=== PATIENT | male | born 1950 | race Caucasian/White ===

== ENCOUNTER → 2016-08-15 | Day surgery (SDC) | payer BC ==
[~2016-08-15] MED LIST: ALEVE220 M1 PO; ALLEGRA; ALLEGRA ALLERG180 MG PO; ALLEGRA180 MG PO; AMOX CLAV; ASENDIN25 MG; ASPIRIN EC81 M1 PO; ASPIRIN81 M2 PO; AVALIDE 300-251 TAB; BENTYL10 MG PO; CIPRO PO; COLESTID PO; DITROPAN X10 MG/BOTT PO; ESCITALOPRAM OX10 MG PO; GLUCOPHAGE XR500 MG; HYDROCODON-ACE1 EAC5 PO; HYZAAR 100-25 T1 TAB PO; HYZAAR 50-12.51 TA1 PO; JANUVIA PO; LOMOTIL TABLET1 TAB PO; LOSARTAN-HCTZ1 EAC1 PO; METFORMIN HCL500 M1 PO; MOBIC15 MG PO; MOTRIN600 M1 PO; OXYBUTYNIN10 MG/BOTT PO; ZOFRANODT PO
--- NOTE | ~2016-08-15 | OR ---
Unit #: [id number] #: [id number] Patient: KADI ROMERO [id number] [address] [place], [place] [address] [id number] O MR#: [id number] NAME: KADI ROMERO. ROOM: Date of Procedure: 08/15/2016 Admission Date: 08/15/2016 Surgeon: Chivo Bynum M.D. : 1950 Attending Physician: Chivo Bynum M.D. Primary Care Physician: Cara Castro M.D. SURGERY CENTER OPERATIVE NOTE PROCEDURE PERFORMED Lumbar epidural steroid injection under x-ray guided needle placement. PREOPERATIVE DIAGNOSES 1. Acute lumbar radiculitis. 2. Spinal stenosis, lumbosacral spine. 3. Degenerative joint disease, lumbosacral spine. 4. Degenerative disk disease, lumbosacral spine. INDICATIONS FOR PROCEDURE The patient presents today with a longstanding history of chronic lumbar radicular pain secondary to his underlying degenerative processes at his most recent epidural steroid injection occurring approximately 3 to 4 months ago. The patient developed pain consistent with lumbar facet arthralgia in the interim between and is return today. He presents today having exacerbation, which is similar in the past to his previous exacerbations as well as the underlying/overlying lumbar facet arthralgia. After discussing risks and benefits of proceeding today with an L4-L5 epidural steroid injections as well as return to this clinic on 11/28/2016, the patient agreed this would be the appropriate course of action. We also discussed referral to [facility] for a potential facet joint injections as well as radiofrequency ablation, which he agreed. DESCRIPTION OF PROCEDURE Following these discussions, the patient was taken to the operating room, where he was prepped and draped in a sterile manner. Standard monitors were applied. He refused all forms of sedation and lumbar epidural space accessed at the L4-L5 level using loss of resistance technique and x-ray guidance. Needle placement was confirmed with injection of 2 mL of Omnipaque. There was good superior and inferior flow at this injected level. Following successful needle placement confirmation which required an x-ray time of 10 seconds, the patient received an injectate containing 4 mL normal saline and 80 mg of methylprednisolone. He tolerated this procedure well and was discharged with followup instructions, which included return date as described above. He was further instructed if he was asymptomatic at the time of his future scheduled appointment to simply not keep that appointment and to follow up with this clinic as needed or his referring and/or primary provider. He is also instructed if he felt these injections were of no benefit to return to his primary care and/or referring provider for further more advanced pain management referral. Dictated by... Unit #: [id number] #: [id number] Patient: KADI ROMERO M.D. JRG/dahlia TD: 08/16/2016 00:14 JOB #: [id number] CC: Mateus Martin M.D. SURGERY CENTER OPERATIVE NOTE Page 1 of 1 X Martín Bynum MD X PROCEDURE OPERATIVE NOTE
== END | disposition home or self-care (01) ==
LOC: CCSC 09:20
DX: G89.29 Other chronic pain (principal); M51.17 Intervertebral disc disorders with radiculopathy, lumbosacral region; M48.07 Spinal stenosis, lumbosacral region; M19.90 Unspecified osteoarthritis, unspecified site; Z85.46 Personal history of malignant neoplasm of prostate; Z87.01 Personal history of pneumonia (recurrent); Z88.5 Allergy status to narcotic agent; Z90.49 Acquired absence of other specified parts of digestive tract; Z90.89 Acquired absence of other organs; Z96.653 Presence of artificial knee joint, bilateral; Z98.41 Cataract extraction status, right eye; Z98.890 Other specified postprocedural states
CPT/HCPCS: J1040; J2250

== ENCOUNTER → 2016-11-21 | Day surgery (SDC) | payer BC ==
--- NOTE | ~2016-11-21 | OR ---
Unit #: [id number] #: [id number] Patient: KADI ROMERO [id number] [address] [place], [place] [address] [id number] O MR#: [id number] NAME: KADI ROMERO. ROOM: Date of Procedure: 11/21/2016 Admission Date: 11/21/2016 Surgeon: Chivo Bynum M.D. : 1950 Attending Physician: Chivo Bynum M.D. Referring Physician: Chivo Bynum M.D. Primary Care Physician: Cara Castro M.D. SURGERY CENTER OPERATIVE NOTE PROCEDURE PERFORMED Lumbar epidural steroid injection under x-ray guided needle placement with provider administered conscious sedation. PREOPERATIVE DIAGNOSES 1. Acute lumbar radiculitis. 2. Spinal stenosis, lumbosacral spine. 3. Degenerative joint disease, lumbosacral spine. 4. Degenerative disk disease, lumbosacral spine. INDICATIONS FOR PROCEDURE The patient presents today with longstanding history of chronic lumbar radicular pain right greater than left, which is generally successfully managed with conservative measures. However, he does on occasion experienced exacerbations, which to date have only responded to epidural steroid injections. His usual amount of relief is 80% to 100% for 8 to 10 weeks. His usual conservative measures consisting of medications and self-directed physical activity. He presents today complain of just such an exacerbation stating his last epidural steroid injection was almost 100% effective except for one area on the right side. After discussing risks and benefits of proceeding today with an L4-L5 epidural steroid injection with slightly rightward reflection of the needle, the patient agreed this would be the appropriate course of action. DESCRIPTION OF PROCEDURE He was then taken to the operating room, where he was prepped and draped in a sterile manner. Standard monitors were applied. He was sedated with 2 mg of IV Versed and lumbar epidural space accessed at L4-L5 level using loss of resistance technique and x-ray guidance. Needle placement was confirmed with injection of 2 mL of Omnipaque. Dye flow was approximately 75% in the inferior direction and 25% in the superior direction. This was considered acceptable. Total x-ray time for this needle placement was 12 seconds. Following successful needle placement confirmation at the L4-L5 level, the patient received an injectate containing 4 mL normal saline and 80 mg of methylprednisolone. He tolerated this procedure well. He was discharged home with followup instructions, which include an offer to return to this clinic as early as 02/27/2017 if we could be of further service to him. Dictated by... Chivo Bynum M.D. Unit #: [id number] #: [id number] Patient: KADI ROMERO/manjitl TD: 11/21/2016 14:19 JOB #: [id number] CC: Mateus Martin M.D. SURGERY CENTER OPERATIVE NOTE Page 1 of 1 X Martín Bynum MD X PROCEDURE OPERATIVE NOTE
== END | disposition home or self-care (01) ==
LOC: CCSC 09:45
DX: G89.29 Other chronic pain (principal); M51.17 Intervertebral disc disorders with radiculopathy, lumbosacral region; M47.27 Other spondylosis with radiculopathy, lumbosacral region; M48.07 Spinal stenosis, lumbosacral region; Z87.01 Personal history of pneumonia (recurrent); Z85.46 Personal history of malignant neoplasm of prostate; Z92.3 Personal history of irradiation; Z79.82 Long term (current) use of aspirin; Z79.1 Long term (current) use of non-steroidal anti-inflammatories (NSAID); Z79.899 Other long term (current) drug therapy; Z90.49 Acquired absence of other specified parts of digestive tract; Z93.3 Colostomy status; Z98.41 Cataract extraction status, right eye; Z98.42 Cataract extraction status, left eye; Z96.653 Presence of artificial knee joint, bilateral; Z98.890 Other specified postprocedural states; Z88.6 Allergy status to analgesic agent
CPT/HCPCS: J1040; J2250

== ENCOUNTER 2017-01-27 09:41 | Emergency (ER) | payer BC ==
[~2017-01-27] VITALS: Ht 170.2 cm; Wt 120.2 kg
--- NOTE | ~2017-01-27 | CT2 ---
[facility] A Service of [facility] RADIOLOGY TEXT RESULTS PATIENT: KADI ROMERO LOCATION: [facility] : [birth year] UNIT #: [id number] AGE: [address]: Myron Tamayo DO SEX: M ORDER DR: [id number] [facility] [address] [place], [place] [address] [id number] E MR#: [id number] Acc #: [id number] NAME: KADI ROMERO : 1950 SEX: M STUDY DATE/TIME: 01/27/2017 13:49 UNIT: [facility] ROOM: STUDY DESCRIPTION: CT Abd and Pelv W Cont Attending Physician: Myron Tamayo D.O. Ordering Physician: Myron Tamayo D.O. Primary Care Physician: Cara Castro M.D. MEDICAL IMAGING REPORT This report is preliminary unless electronic signature is present EXAM CT abdomen and pelvis with contrast 01/27/2017 HISTORY 66-year-old male with right lower quadrant pain and right groin pain for 2 days. History of prostate cancer. COMPARISON CT abdomen and pelvis with contrast 03/02/2012. PROCEDURE 5 mm axial images from the lung bases through the lesser trochanters after intravenous and enteric contrast administration. Sagittal and coronal reformatted images were obtained. This CT examination was performed with one or more of the following radiation dose reduction techniques: automatic exposure control, adjustment of mA and/or kV according to patient size, and iterative reconstruction. FINDINGS ABDOMEN: Multiple layering gallstones are present but no pericholecystic inflammation or biliary dilation is seen. The liver is diffusely steatotic. Multiple liver cysts are demonstrated in both lobes, 1 of the largest in the lateral left hepatic segment measuring nearly 2.5 cm. The spleen, adrenals are normal. Pancreas is mildly fatty replaced. Left kidney is normal. Right renal cyst measures 1.2 cm. No adenopathy. No free fluid. The appendix is not visualized. No pericecal inflammation is seen. The bowel appears nonthickened, nondilated, noninflamed. There is a tiny umbilical hernia containing only fat. PELVIS: There are surgical changes of the sigmoid colon with colocolonic STS. [facility] A Service of [facility] RADIOLOGY TEXT RESULTS PATIENT: KADI ROMERO LOCATION: [facility] : [birth year] UNIT #: [id number] AGE: [address]: Myron Tamayo DO SEX: M ORDER DR: anastomosis. A few diverticula are seen within the descending and sigmoid colon without evidence of acute diverticulitis. Urinary bladder and rectum are normal. Radiation implants are seen within a nonenlarged prostate gland. No pelvic adenopathy or free fluid is identified. Degenerative disc and endplate changes are present within the spine. No acute osseous abnormalities. No suspicious osteolytic or osteoblastic lesions are evident. IMPRESSION 1. There are no acute findings within the abdomen or pelvis to explain the patient's right-side pain. 2. Uncomplicated cholelithiasis. 3. Appendix not visualized but no pericecal inflammation is seen. 4. Surgical changes of the sigmoid colon. 5. Mild uncomplicated descending and sigmoid diverticulosis. 6. Radiation implants within the prostate gland. No adenopathy or evidence of metastatic disease in the abdomen or pelvis 7. Diffuse hepatic steatosis and multiple hepatic cysts. 8. Right renal cyst. Dictated by... Patsy Parker M.D. THIS IS AN ELECTRONICALLY VERIFIED REPORT Patsy Parker M.D. at 01/29/2017 9:51 AM MEHNAZ/gayatri TD: 01/28/2017 12:03 JOB #: [id number] MEDICAL IMAGING REPORT Page 1 of 1 COPY
--- NOTE | ~2017-01-27 | US85 ---
[facility] A Service of [facility] RADIOLOGY TEXT RESULTS PATIENT: KADI ROMERO LOCATION: [facility] : 50 UNIT #: [id number] AGE: [address]: Myron Tamayo DO SEX: M ORDER DR: [id number] [facility] [address] [facility] [place], [place] [address] [id number] E MR#: [id number] Acc #: [id number] NAME: KADI ROMERO. : 1950 SEX: M STUDY DATE/TIME: 01/27/2017 11:45 UNIT: [facility] ROOM: STUDY DESCRIPTION: [facility] [employer] [facility] Attending Physician: Myron Tamayo D.O. Ordering Physician: Myron Tamayo D.O. Primary Care Physician: Cara Castro M.D. MEDICAL IMAGING REPORT This report is preliminary unless electronic signature is present EXAM Right lower extremity venous duplex Doppler INDICATION Right leg pain for 1 month. COMPARISON 03/23/2014 TECHNIQUE Venous ultrasound examination of the right lower extremity was performed using grayscale, spectral Doppler and color flow Doppler imaging. FINDINGS The examination is negative. There is no evidence of right lower extremity deep venous thrombus from the groin to the lower calf. Visualized greater saphenous vein is also patent. IMPRESSION Negative examination. No evidence of right lower extremity deep venous thrombosis. Dictated by... Yan Regalado M.D. THIS IS AN ELECTRONICALLY VERIFIED REPORT Yan Regalado M.D. at 01/28/2017 11:48 AM JAIRO/kolton TD: 01/28/2017 11:36 JOB #: [id number] [facility] A Service of [facility] RADIOLOGY TEXT RESULTS PATIENT: KADI ROMERO LOCATION: [facility] : 50 UNIT #: [id number] AGE: [address]: Myron Tamayo DO SEX: M ORDER DR: MEDICAL IMAGING REPORT Page 1 of 1 COPY
[2017-01-27 11:24] LABS: BASOPHIL% 0.4 % (0-2.5); EOSINOPHIL# 0.1 X10e3 (0-0.7); EOSINOPHIL% 1.7 % (0.0-7.0); HEMATOCRIT 46.2 % (38.0-50.0); HEMOGLOBIN 15.7 gm/dL (13.0-16.0); LYMPHOCYTE# 1.2 X10e3 (1.0-3.5); LYMPHOCYTE% 15.2 % (17.0-45.0); MEAN CELL VOLUME 94.9 FL (83-96); MEAN CORPUSCULAR HEMOGLOBIN 32.2 PG (28-34); MEAN PLATELET VOLUME 7.7 FL (6.5-11.5); MONOCYTE# 0.8 X10e3 (0-1.0); MONOCYTE% 9.9 % (3.0-12.0); NEUTROPHIL# 5.7 X10e3 (1.5-7.1); NEUTROPHIL% 72.8 % (40-75); PLATELET COUNT 296 X10e3 (140-420); RED BLOOD COUNT 4.87 X10e (3.90-5.60); RED CELL DISTRIBUTION WIDTH 13.8 % (11.0-15.5); WHITE BLOOD COUNT 7.8 X10e3 (4.0-10.5)
[2017-01-27 11:25] LABS: DIFF IND NO
[2017-01-27 11:56] LABS: ALBUMIN SERUM 3.9 g/dL (3.5-5.0); BILIRUBIN, DIRECT 0.1 mg/dL (0.0-0.2); BILIRUBIN,INDIRECT 0.4 mg/dL (0.0-0.9); BILIRUBIN,TOTAL 0.5 mg/dL (0.2-2.0); GLOM FILT RATE Estimated 78.1 mL/min (>60); POTASSIUM 3.7 mmol/L (3.5-5.1); PROTEIN TOTAL SERUM 7.4 g/dL (6.0-8.3)
[2017-01-27 13:58] LABS: URINE SOURCE CLEAN CATCH
[2017-01-27 14:07] LABS: URINE APPEARANCE CLEAR; URINE BILIRUBIN NEG (NEG); URINE BLOOD NEG (NEG); URINE COLOR YELLOW; URINE GLUCOSE NEG (NEG); URINE KETONE NEG (NEG); URINE LEUKOCYTE ESTERASE NEG (NEG); URINE NITRATE NEG (NEG); URINE PROTEIN NEG (NEG); URINE SPECIFIC GRAVITY 1.022 (1.003-1.035); URINE UROBILINOGEN 0.2 MG/DL (NEG)
[2017-01-27 14:13] LABS: CULTURE INDICATED? NO
== END 2017-01-27 15:00 | disposition home or self-care (01) ==
LOC: CED 09:41
PROVIDERS: Emergency Medicine
DX: R10.9 Unspecified abdominal pain (principal); M79.606 Pain in leg, unspecified; E11.9 Type 2 diabetes mellitus without complications; I10 Essential (primary) hypertension; E78.5 Hyperlipidemia, unspecified; Z86.19 Personal history of other infectious and parasitic diseases; Z88.5 Allergy status to narcotic agent
CPT/HCPCS: 36415; 74177; 80048; 80076; 81003; 83690; 85025; 93971; 96361; 96374; 96375; 99284; J1170; J2405; Q9967

== ENCOUNTER → 2017-01-29 | Outpatient (CLI) | payer BC ==
--- NOTE | ~2017-01-29 | NM4 ---
[facility] A Service of [facility] RADIOLOGY TEXT RESULTS PATIENT: KADI ROMERO LOCATION: [facility] : [birth year] UNIT #: [id number] AGE: [address]: Mateus Martin MD SEX: M ORDER DR: [id number] [facility] [address] [facility]. [place], [place] [address] [id number] O MR#: [id number] Acc #: [id number] NAME: KADI ROMERO : 1950 SEX: M STUDY DATE/TIME: 01/29/2017 10:18 UNIT: [facility] ROOM: STUDY DESCRIPTION: [place] Bone or Joint 3 Phase Study Attending Physician: Mateus Martin M.D. Referring Physician: Mateus Martin M.D. Ordering Physician: Mateus Martin M.D. Primary Care Physician: Cara Castro M.D. MEDICAL IMAGING REPORT This report is preliminary unless electronic signature is present EXAM Three-phase bone scan. HISTORY Right knee pain starting 2 months ago getting worse. COMPARISON CT abdomen and pelvis, 01/27/2017, and right knee films, 05/24/2015. FINDINGS Three-phase bone scan was performed centered over the knees following the intravenous administration of 29.6 mCi technetium 99m MDP. This was followed by a whole-body anterior and posterior acquisitions. There is subtle increased flow to the left knee. Immediate blood-pool imaging also demonstrates increased flow to the left knee but appears relatively diffuse. Delayed-phase imaging demonstrates increased uptake within the medial compartment of the left knee which may reflect underlying medial compartment arthrosis. There is mild increased uptake along the tibial component of the patient's right total knee arthroplasty but the degree and symmetry is felt to be normal. There is increased uptake in the right hip best seen on the posterior whole-body acquisitions. Review of the patient's recent CT scan demonstrates some mild arthritic change of the right hip and minimal fragmentation of the posterior acetabulum but no definite acute process. Mild increased uptake within the left T9 costovertebral junction and this is felt to correspond to an area of sclerosis and hypertrophic change at the left T9 costovertebral junction. This may be degenerative or post-traumatic in origin. Increased uptake in the left periorbital zygomatic arch region may represent sequelae of old trauma. Bilateral renal activity and normal bladder activity noted. Contamination noted on the posterior images across the mid abdomen. There is also increased uptake within the right posterior fourth rib. This is nonspecific but, due to the diffuse uptake, suggests either a rib lesion or possibly postsurgical change. Review of the conventional chest STS. [facility] A Service of [facility] RADIOLOGY TEXT RESULTS PATIENT: KADI ROMERO LOCATION: [facility] : 50 UNIT #: [id number] AGE: [address]: Mateus Martin MD SEX: M ORDER DR: radiograph from April 2059 demonstrated no discrete abnormality. IMPRESSION 1. No evidence of increased flow to the right knee. Mild diffuse increased uptake along the tibial component of the patient's right total knee arthroplasty is felt to be within normal limits. 2. Mild increased flow to the left knee diffusely as well as focal increased uptake in the medial femoral condyle most likely reflecting medial compartment arthrosis. 3. Focus of increased uptake near the left T9 costovertebral junction corresponding sclerotic lesion noted on his chest CT, probably related to prior trauma or degenerative process. 4. Apparent increased linear uptake within the right fourth posterior vertebral body. Chest x-ray correlate from April 2015 cannot be identified. I suspect this could represent an area of fibrous dysplasia or less likely postsurgical. This could also be potentially just artifactual, but does appear to persist. Correlation with rib series may be of benefit. 5. Increased uptake about the right hip most prominent along the posterior whole-body acquisitions. This may correspond to some degenerative changes seen in the right hip as noted on recent CT but the uptake appears more dramatic than would be expected but no correlate of pathology is seen. Dictated by... Ras Donahue M.D. THIS IS AN ELECTRONICALLY VERIFIED REPORT Ras Donahue M.D. at 01/31/2017 2:35 PM Shahid TD: 01/30/2017 08:06 JOB #: [id number] MEDICAL IMAGING REPORT Page 1 of 1 COPY
== END | disposition home or self-care (01) ==
LOC: CNUC 09:22
DX: M25.561 Pain in right knee (principal); R94.8 Abnormal results of function studies of other organs and systems
CPT/HCPCS: 78315; A9503